=== PATIENT | male | born 1960 ===

== ENCOUNTER 2024-08-19 05:21 | Day surgery (SDC) | payer OTHER ==
[2024-08-12 13:09] VITALS: BP 130/84
[~2024-08-19] VITALS: Ht 182.9 cm; Wt 121.1 kg
[~2024-08-19 05:21] MED LIST: ATORVASTATIN CA20 MG PO; FENOFIBRATE150 MG PO; LEVOTHYROXINE25 MCG PO
[2024-08-19] MEDS ORDERED: ENOXAPARIN SODIUM 40 MG/0.4 ML SYRINGE SUBCUTANEO ONE (07:25)
[2024-08-19] MEDS ORDERED: CEFTRIAXONE SODIUM 2,000 MG VIAL ONE (07:25)
[2024-08-19] MEDS ORDERED: BUPIVACAINE HCL/MPF 0.5% 30ML VIAL ONE (07:25)
[2024-08-19] MEDS ORDERED: METRONIDAZOLE/SODIUM CHLORIDE 500 MG/100 ML PIGGYBACK IV ONE (07:25)
[2024-08-19] MEDS ORDERED: SUGAMMADEX SODIUM 200 MG/2 ML VIAL IV ONE (09:15)
[2024-08-19] MEDS ORDERED: PERCOCET 5-3251 EACH PO (09:49)
[2024-08-19] MEDS ORDERED: CELEBREX200MG PO (09:50)
[2024-08-19] MEDS ORDERED: POLY119PG PO (09:50)
[2024-08-19] MEDS ORDERED: NEURONTIN300 MG PO (09:50)
[2024-08-19] MEDS ORDERED: MORPHINE SULFATE 4 MG/ML VIAL IV ONE (10:55)
== END 2024-08-19 12:45 | disposition home or self-care (01) ==
LOC: CIR.AMB 05:21
PROVIDERS: ATTEND Surgery
DX: K40.91 Unilateral inguinal hernia, without obstruction or gangrene, recurrent (principal); E03.8 Other specified hypothyroidism; K76.0 Fatty (change of) liver, not elsewhere classified
CPT/HCPCS: 49651; C1781